=== PATIENT | male | born 1945 | race Caucasian/White ===

== ENCOUNTER 2016-10-09 11:08 | Observation (INO) | payer OTHER ==
[~2016-10-09] VITALS: Ht 177.8 cm; Wt 112.0 kg
[~2016-10-09 11:08] MED LIST: ALLO300T2 PO; ATEN-102 PO; DILT240C7 PO; ETOD400T PO; FLUO60TA PO; HYDR-2768 PO; LISI-366 PO; METF-324 PO; NOVO70IN2 SQ; OMEP20TA PO; TRAZ100 PO
[2016-10-09 11:10] VITALS: BP 147/67; PULSE 56; RESP 16; TEMP 98.3; O2SAT 94
[2016-10-09] MEDS ORDERED: MELO7.5T4 PO (12:08)
[2016-10-09] MEDS ORDERED: TRAZ50TA12 PO (12:08)
[2016-10-09] MEDS ORDERED: FLUO40CA PO (12:08)
[2016-10-09] MEDS ORDERED: POTA10TA2 PO (12:08)
[2016-10-09] MEDS ORDERED: LISI40TA PO (12:08)
[2016-10-09] MEDS ORDERED: ALLO300T2 PO (12:08)
[2016-10-09] MEDS ORDERED: FURO20TA PO (12:08)
[2016-10-09] MEDS ORDERED: METF500T PO (12:08)
[2016-10-09] MEDS ORDERED: METO25TA3 PO (12:08)
[2016-10-09] MEDS ORDERED: NOVO7030P2 SQ (12:08)
[2016-10-09] MEDS ORDERED: NAPR500T PO (12:08)
--- NOTE | 2016-10-09 12:31 | PD ---
HPI Chief Complaint: Respiratory Symptoms Time Seen by Provider: 12:22 Travel History International Travel<30 days: No Contact w/Intl Traveler<30days: No Traveled to known affect area: No History of Present Illness HPI 70-year-old male came to the emergency room with his with history of exertional dyspnea. Patient says that this has been going on for few months but for past 2 weeks it has worsened. Now he gets very short of breath even after taking 10 steps. Patient has history of coronary artery disease and had a CABG 4 years ago. He is a diabetic and listening to the blood sugar count he seems to be poorly controlled. Patient denies of any chest pain. No history of syncopal episode. He takes furosemide half a pill every other day. He also has history of COPD and has a nebulizer at home. Lately he has been using the nebulizer along with nitroglycerin which seems to relieve his shortness of breath to some extent. Vital signs were stable. [facility] Past Medical History Narrative Medical List of his past medical, surgical, social and family history reviewed from the nursing note. Depression: Yes Cardiovascular Problems: Yes (HTN, BYPASS) Cerebrovascular Accident: Yes Diabetes: Yes (METFORMIN) Patient Takes Glucophage: Yes GERD: Yes Gout: Yes Hypertension: Yes Respiratory: Yes (ALBUTEROL) Sleep Apnea: Yes (C-PAP WHEN NEEDED) Past Surgical History Cardiac Surgery: Yes Social History Alcohol Use: No (SOCIALLY) Tobacco Use: No (CHEWS ON A CIGAR) Substance Use: No Allergies-Medications (Allergen,Severity, Reaction): Coded Allergies: No Known Allergies (Unverified , 10/09/16) Comments No known drug allergies. Reported Meds & Prescriptions Reported Meds & Active Scripts Active Reported Potassium Chloride ER (Potassium Chloride) 10 Meq Tab Unknown Dose PO DAILY Trazodone (Trazodone HCl) 50 Mg Tab 50 Mg PO HS Fluoxetine (Fluoxetine HCl) 40 Mg Cap 40 Cap PO DAILY Furosemide 20 Mg Tab 10 Mg PO EVERY OTHER DAY Naproxen 500 Mg Tab 500 Mg PO DAILY Meloxicam 7.5 Mg Tab 7.5 Mg PO DAILY Metformin (Metformin HCl) 500 Mg Tab 500 Mg PO BIDPC With meals Metoprolol Tartrate 25 Mg Tab Unknown Dose PO BID Lisinopril 40 Mg Tab 40 Mg PO DAILY Allopurinol 300 Mg Tab 300 Mg PO DAILY Narrative Medication List of his home medications reviewed from the nursing note. Review of Systems Except as stated in HPI: all other systems reviewed are Neg Physical Exam Narrative GENERAL: Awake, alert, mild distress, obese SKIN: Focused skin assessment warm/dry. HEAD: Atraumatic. Normocephalic. EYES: Pupils equal and round. No scleral icterus. No injection or drainage. ENT: No nasal bleeding or discharge. Mucous membranes pink and moist. NECK: Trachea midline. No JVD. CARDIOVASCULAR: Regular rate and rhythm. Bradycardia. No murmur appreciated. RESPIRATORY: No accessory muscle use. Clear to auscultation. Breath sounds equal bilaterally. GASTROINTESTINAL: Abdomen soft, non-tender, nondistended. Hepatic and splenic margins not palpable. MUSCULOSKELETAL: No obvious deformities. No clubbing. No cyanosis. 1+ pedal edema. NEUROLOGICAL: Awake and alert. No obvious cranial nerve deficits. Motor grossly within normal limits. Normal speech. PSYCHIATRIC: Appropriate mood and affect; insight and judgment normal. Data Data Last Documented VS Vital Signs Date Time Temp Pulse Resp B/P Pulse Ox O2 Delivery O2 Flow Rate FiO2 10/09/16 14:15 94 Nasal Cannula 2 10/09/16 14:14 60 16 142/78 10/09/16 11:10 98.3 Orders Complete Blood Count With Diff (10/09/16 11:40) Basic Metabolic Panel (Bmp) (10/09/16 11:40) Chest, Pa & Lat (10/09/16 11:40) Electrocardiogram (10/09/16 11:40) B-Type Natriuretic Peptide (10/09/16 11:42) Troponin I (10/09/16 13:00) Furosemide Inj (Lasix Inj) (10/09/16 13:45) Admit Order (Ed Use Only) (10/09/16 14:28) Labs Laboratory Tests Test 10/09/16 12:15 White Blood Count 3.9 TH/MM3 Red Blood Count 4.19 MIL/MM3 Hemoglobin 12.4 GM/DL Hematocrit 36.9 % Mean Corpuscular Volume 88.2 FL Mean Corpuscular Hemoglobin 29.6 PG Mean Corpuscular Hemoglobin 33.6 % Concent Red Cell Distribution Width 15.3 % Platelet Count 101 TH/MM3 Mean Platelet Volume 10.0 FL Neutrophils (%) (Auto) 68.8 % Lymphocytes (%) (Auto) 20.9 % Monocytes (%) (Auto) 5.8 % Eosinophils (%) (Auto) 3.9 % Basophils (%) (Auto) 0.6 % Neutrophils # (Auto) 2.7 TH/MM3 Lymphocytes # (Auto) 0.8 TH/MM3 Monocytes # (Auto) 0.2 TH/MM3 Eosinophils # (Auto) 0.1 TH/MM3 Basophils # (Auto) 0.0 TH/MM3 CBC Comment DIFF FINAL Differential Comment Sodium Level 142 MEQ/L Potassium Level 4.0 MEQ/L Chloride Level 105 MEQ/L Carbon Dioxide Level 30.9 MEQ/L Anion Gap 6 MEQ/L Blood Urea Nitrogen 24 MG/DL Creatinine 1.27 MG/DL Estimat Glomerular Filtration 56 ML/MIN Rate Random Glucose 150 MG/DL Calcium Level 8.8 MG/DL Troponin I LESS THAN 0.02 NG/ML B-Type Natriuretic Peptide 345 PG/ML MDM Medical Decision Making Medical Screen Exam Complete: Yes Emergency Medical Condition: Yes Medical Record Reviewed: Yes Interpretation(s) Twelve-lead EKG was reviewed by me. Normal sinus rhythm, bradycardia, poor R- wave progression, old inferior DE. Heart rate of 51 bpm. Differential Diagnosis Congestive heart failure, ACS, non-STEMI Narrative Course 2:15 PM patient was given IV 40 mg of Lasix. Blood test results are back and the BNP is slightly elevated. However the chest x-ray does not show any fluid overload as per the radiologist. Patient has significant risk factor mainly in the form of diabetes which is poorly controlled and hence risk for recurrent ACS and his exertional dyspnea could be an angina variant. I would like to keep him in the chest pain center to be ruled out at this point. Procedures EKG Prior to Arrival: No Diagnosis Primary Impression: Exertional dyspnea Additional Impression: rule out ACS Admitting Information Admitting Physician Requests: Observation Laura Rodriguez MD Oct 09, 2016 12:31
[2016-10-09 13:00] LABS: AUTOMATED NEUTROPHIL # 2.7 TH/MM3 (1.8-7.7); BASOPHIL % 0.6 % (0.0-2.0); EOSINOPHIL # 0.1 TH/MM3 (0-0.4); EOSINOPHIL % 3.9 % (0.0-4.0); HEMATOCRIT 36.9 % (39.0-51.0); HEMO FLAGS DIFF FINAL; LYMPH % 20.9 % (9.0-44.0); LYMPHOCYTE # 0.8 TH/MM3 (1.0-4.8); MEAN CELL VOLUME 88.2 FL (80.0-100.0); MEAN CORPUSCULAR HEMOGLOBIN 29.6 PG (27.0-34.0); MEAN CORPUSCULAR HGB CONC 33.6 % (32.0-36.0); MONO % 5.8 % (0.0-8.0); NEUT % 68.8 % (16.0-70.0); PLATELET COUNT 101 TH/MM3 (150-450); RED BLOOD COUNT 4.19 MIL/MM3 (4.50-5.90); RED CELL DISTRIBUTION WIDTH 15.3 % (11.6-17.2); WHITE BLOOD COUNT 3.9 TH/MM3 (4.0-11.0)
--- NOTE | 2016-10-09 13:19 | RADRPT ---
EXAM DATE/TIME: 10/09/2016 12:14 [facility] COMPARISON: No previous studies available for comparison. INDICATIONS : Shortness of breath, cough. MEDICAL HISTORY : Hypertension. Diabetes mellitus type II. Cholelithiasis. SURGICAL HISTORY : CABG. ENCOUNTER: Initial ACUITY: 1 day PAIN SCORE: 0/10 LOCATION: Bilateral chest FINDINGS: PA and lateral views of the chest demonstrate the lungs to be symmetrically aerated with minimal biba silar atelectatic changes but no confluent infiltrates. Accounting for low lung volumes, heart size i s normal. Intact median sternotomy wires. Osseous structures are intact with bridging anterior and la teral osteophytes. CONCLUSION: 1. Mild bibasilar atelectatic changes. No confluent infiltrate. 2. Heart size is normal. No effusions. Rich Marin MD on October 09, 2016 at 13:16 Board Certified Radiologist. This report was verified electronically.
[2016-10-09 13:42] LABS: BICARBONATE 30.9 MEQ/L (21.0-32.0)
[2016-10-09] MEDS ORDERED: FUROSEMIDE 40 MG/4 ML VIAL IV PUSH ONE (13:45)
[2016-10-09 14:14] VITALS: BP 142/78; PULSE 60; RESP 16; O2SAT 89
[2016-10-09 14:15] VITALS: O2SAT 94
[2016-10-09] MEDS ORDERED: SODIUM CHLORIDE 0.9% FLUSH 10 ML FLUSH IV FLUSH PRN (15:45)
[2016-10-09] MEDS ORDERED: NITROGLYCERIN 0.4 MG SL 25 TABS/BTL SL PRN (15:45)
[2016-10-09] MEDS ORDERED: ACETAMINOPHEN 500 MG CPLT PO PRN (15:45)
[2016-10-09] MEDS ORDERED: ONDANSETRON HCL 4 MG/2 ML VIAL IV PRN (15:45)
[2016-10-09 16:24] VITALS: O2SAT 94
[2016-10-09 16:48] VITALS: BP 167/81; PULSE 52; RESP 20; O2SAT 97
--- NOTE | 2016-10-09 17:08 | EKG ---
Date Performed: 10/09/2016 Time Performed: 12:17:49 PTAGE: 70 years EKG: SINUS BRADYCARDIA POSSIBLE LEFT ATRIAL ENLARGEMENT POSSIBLE INFERIOR MYOCARDIAL INFARCTION BORDERLINE ECG PREVIOUS TRACING : 05/26/2012 12.22 Compared to prior tracing no significant change DOCTOR: Federico August Interpretating Date/Time 10/09/2016 17:07:04
--- NOTE | 2016-10-09 17:30 | HHI.HP ---
HPI Primary Care Physician Reyna [facility] Chief Complaint Exertional dyspnea History of Present Illness 70-year-old male with history of coronary artery disease, CABG 2 (2012), diabetes, COPD, hypertension, and sleep apnea presents to the emergency room for further evaluation of exertional dyspnea. Onset 2 months ago when he first noticed symptoms. Over the last 2 weeks, dyspnea has been constant with any activity. Reports dyspnea occurs with bending over or walking short distances such as 10 feet. Recovers quickly within 1 minute. Does not necessarily hurt to breathe. Diagnosed with COPD "years ago" and was given an inhaler to use when necessary. Followed with a night shift supervisor for his sleep apnea not his COPD. This past week started using albuterol nebulizer 34 times daily with some relief. Denies any chest pain or pressure. Prior to CABG in November 2012 symptoms included weakness, exertional dyspnea, and left anterior chest heaviness. Approximately 1 year after CABG, he developed exertional dyspnea and was ruled out with a chemical stress test. Subsequently he had a cardiac catheterization despite normal stress test due to exertional dyspnea. He was told cardiac catheterization was normal. He is from [place], [place] and [place] with the [place]. Review of Systems General: As stated above. No fatigue, weakness, fever, chills, recent illness, or change in appetite. Traveled from [facility] last seen his primary care provider 09/07/16. He did not notify his PCP at that time of exertional shortness of breath. HEENT: No nasal congestion or drainage, no dysphasia CV: No CP, pressure, palpitations, intermittent leg pain, or dizziness. RESP: Exertional shortness of breath, denies resting dyspnea. Reports occasional wheeze. Recently developed sputum production he relates to after starting nebulizer treatments. Sputum clear. History of COPD and sleep apnea. Denies ever being started on daily inhalers, only albuterol when necessary. Has never had formal pulmonary testing other than a sleep study. GI: No nausea, vomiting, bowel changes, diarrhea, constipation, pain, distention , melena, or blood in the stool. History of colon polyps removed. First colonoscopy 7 polyps removed, second colonoscopy 5 polyps removed. Last colonoscopy approximately 3 years ago and believes he is due for another colonoscopy soon. : No dysuria. Endorses hesitancy with urination that is normal for him. He has notified his PCP regarding this. Reports prostate examined one year ago and was normal. No medications were started at that time. EXT: Chronic lower leg edema, reports neuropathy bilateral feet. Neuropathy occasionally bilateral hands. MS: No discomfort or change in ROM, ambulates with a cane NEURO: No LOC PSYCH: History of depression, stable on current medication regimen. SKIN: No rashes, no concerning lesions Past Family Social History Allergies: Coded Allergies: No Known Allergies (Unverified , 10/09/16) Past Medical History CAD, diabetes insulin-dependent, COPD, hypertension, gout, sleep apnea, CVA 2 ( reports CVAs occurred during open heart surgery, no residual effects) Past Surgical History CABG 2 (11/2012) Reported Medications Active Reported Potassium Chloride ER (Potassium Chloride) 10 Meq Tab Unknown Dose PO DAILY Trazodone (Trazodone HCl) 50 Mg Tab 50 Mg PO HS Fluoxetine (Fluoxetine HCl) 40 Mg Cap 40 Cap PO DAILY Furosemide 20 Mg Tab 10 Mg PO EVERY OTHER DAY Naproxen 500 Mg Tab 500 Mg PO DAILY (Recently started on Naproxen for arthritis pain) Meloxicam 7.5 Mg Tab 7.5 Mg PO DAILY Metformin (Metformin HCl) 500 Mg Tab 500 Mg PO BIDPC With meals Metoprolol Tartrate 12.5 Mg Tab Unknown Dose PO BID Lisinopril 40 Mg Tab 40 Mg PO DAILY Allopurinol 300 Mg Tab 300 Mg PO DAILY Fast acting insulin pen-dosage vary during day Long acting insulin pen 110units daily Atorvastatin (dose unknown) daily Additional antidepressive medication QHS Active Ordered Medications Current Medications Medications (Trade) Dose Ordered Sig/Moses Route Start Time Stop Time Status Last Admin (NS Flush) 2 ml UNSCH PRN IV FLUSH 10/09/16 15:45 (NS Flush) 2 ml BID IV FLUSH 10/09/16 21:00 (Tylenol) 500 mg Q4H PRN PO 10/09/16 15:45 (Zofran Inj) 4 mg Q6H PRN IV 10/09/16 15:45 (Nitrostat Sl) 0.4 mg Q5M PRN SL 10/09/16 15:45 (Aspirin) 325 mg DAILY PO 10/10/16 09:00 Family History Fathermultiple MIs beginning in his early 50s. Mother of [place] at age 45. Social History Known coronary artery disease, diabetes, and hypertension. Appropriately taking statin therapy for his known CAD. Lifelong nonsmoker. Endorses chewing onset are through most of his adult life stopping chewing cigar after CABG. Rare alcohol use. Denies any illegal drug use. Currently sedentary due to progressive exertional dyspnea. Ambulates with a cane. Past cardiac testing No recent cardiac testing. Last cardiac catheterization 2013-reported to be normal. CABGx2 11/2012. Does not follow with a visual training aide. Reports following with a visual training aide a few times after his surgery. Physical Exam Vital Signs Vital Signs Date Time Temp Pulse Resp B/P Pulse Ox O2 Delivery O2 Flow Rate FiO2 10/09/16 16:48 52 20 167/81 97 Nasal Cannula 3 10/09/16 16:24 94 Nasal Cannula 2.00 10/09/16 14:15 94 Nasal Cannula 2 10/09/16 14:14 60 16 142/78 89 Room Air 10/09/16 11:54 22 95 Room Air 10/09/16 11:10 98.3 56 16 147/67 94 Physical Exam GENERAL: Alert WN, WD, NAD, pleasant, obese, male HEAD: NC, AT EYES: Sclera clear, conjunctiva without injection, pupils equal and round ENT: Mucous membranes pink and moist NECK: Supple, no masses, trachea midline CV: RRR, without murmur, rub, gallop, no JVD, S1-S2 no S3-S4. No carotid bruits. RESP: Diminished lungs throughout bilateral, no crackles, wheeze, or rhonchi. Prolonged expiratory phase. Symmetrical chest rise, nonlabored, able to speak in full sentences. ABD: Soft, NT, ND, no masses, positive bowel tones, obese BACK: No scoliosis EXT: Pulses +24, pitting +3 dependent lower extremity edema MS: Normal tone 4 extremities, nontender, no obvious deformities, full range of motion NEURO: CN II through CN XII grossly intact, motor strength 5/5, gait WNL PSYCH: A+O 3, pleasant affect, appropriate speech, appropriate mood and affect , insight and judgment SKIN: Normal turgor, normal texture, no rashes, brisk cap refill, decrease hair distribution lower extremities, left midabdomen lesion appears to be verruca vulgaris. Midchest scar. 4 round scars noted on right hand. Laboratory Laboratory Tests Test 10/09/16 12:15 White Blood Count 3.9 Red Blood Count 4.19 Hemoglobin 12.4 Hematocrit 36.9 Mean Corpuscular Volume 88.2 Mean Corpuscular Hemoglobin 29.6 Mean Corpuscular Hemoglobin 33.6 Concent Red Cell Distribution Width 15.3 Platelet Count 101 Mean Platelet Volume 10.0 Neutrophils (%) (Auto) 68.8 Lymphocytes (%) (Auto) 20.9 Monocytes (%) (Auto) 5.8 Eosinophils (%) (Auto) 3.9 Basophils (%) (Auto) 0.6 Neutrophils # (Auto) 2.7 Lymphocytes # (Auto) 0.8 Monocytes # (Auto) 0.2 Eosinophils # (Auto) 0.1 Basophils # (Auto) 0.0 CBC Comment DIFF FINAL Differential Comment Sodium Level 142 Potassium Level 4.0 Chloride Level 105 Carbon Dioxide Level 30.9 Anion Gap 6 Blood Urea Nitrogen 24 Creatinine 1.27 Estimat Glomerular Filtration 56 Rate Random Glucose 150 Calcium Level 8.8 Troponin I LESS THAN 0.02 B-Type Natriuretic Peptide 345 Result Diagram: 10/09/16 1215 10/09/16 1215 Imaging Last Impressions Chest X-Ray 10/09/16 1140 Signed Impressions: Service Date/Time: Sunday, October 09, 2016 12:14 - CONCLUSION: 1. Mild bibasilar atelectatic changes. No confluent infiltrate. 2. Heart size is normal. No effusions. Rich Marin MD Course EKG Normal sinus bradycardia, inferior myocardial infarction age undetermined Assessment and Plan Assessment and Plan #1 Exertional dyspneaadmitted to chest pain center. Will rule out with 3 sets of EKGs, cardiac enzymes, monitored overnight, and be seen and evaluated by Dr. Aris Turcios. Exertional dyspnea similar prior to CABG in 2012. Further disposition to follow after being evaluated by visual training aide. Discussed the likelihood a chemical stress test may be ordered, patient is agreeable to plan of care. #2 History of CABGcontinue Metoprolol, aspirin, and atorvastatin #3 Diabeteshold metformin, SSI medium dose coverage #4 Depressioncontinue fluoxetine #5 COPDdiscussed in length likelihood he may require a night shift supervisor for further outpatient testing We will reorder any additional home medications as appropriate once med rec updated. Brittney Dueñas Oct 09, 2016 17:30
[2016-10-09 17:55] LABS: CREATINE KINASE 94 U/L (39-308)
[2016-10-09] MEDS ORDERED: DEXTROSE 50% IN WATER 50 ML VIAL(D50) IV PRN (18:15)
[2016-10-09] MEDS ORDERED: GLUCAGON 1 MG/ML VIAL OTHER PRN (18:15)
[2016-10-09 19:44] VITALS: BP_SYST 175; BP_SYST 179; BP_DIAS 86; PULSE 59; RESP 18; TEMP 97.9; O2SAT 98
[2016-10-09 20:30] LABS: CREATINE KINASE 99 U/L (39-308)
[2016-10-09] MEDS: SODIUM CHLORIDE 0.9% FLUSH 10 ML FLUSH IV FLUSH SCH (21:00)
[2016-10-09] MEDS ORDERED: PILL SPLITTER OTHER PRN (21:00)
[2016-10-09] MEDS: METOPROLOL TARTRATE 25 MG TAB PO SCH (23:15)
[2016-10-09] MEDS: INSULIN ASPART SUPPLEMENTAL SCALE SQ SCH (23:34)
[2016-10-10 00:18] VITALS: BP 180/81; PULSE 60; RESP 18; TEMP 84.9; O2SAT 95
[2016-10-10 04:32] VITALS: BP 181/83; PULSE 60; RESP 18; TEMP 97.5; O2SAT 94
[2016-10-10] MEDS ORDERED: INSU1INJ5 SQ (07:09)
[2016-10-10] MEDS ORDERED: NOVOINJ3 SQ ×2 (07:10→07:11)
[2016-10-10 08:00] VITALS: BP 191/88; PULSE 50; RESP 16; TEMP 95.6; O2SAT 92
[2016-10-10] MEDS: INSULIN ASPART SUPPLEMENTAL SCALE SQ SCH (08:05)
[2016-10-10] MEDS ORDERED: LISINOPRIL 20 MG TAB PO SCH (09:00)
[2016-10-10] MEDS ORDERED: FLUoxetine HCL 20 MG CAP PO SCH (09:00)
[2016-10-10] MEDS ORDERED: ALLOPURINOL 300 MG TAB PO SCH (09:00)
[2016-10-10] MEDS ORDERED: ASPIRIN 325 MG TAB PO SCH (09:00)
[2016-10-10] MEDS ORDERED: REGADENOSON INJ 0.4 MG/5 ML SYR ONE (09:35)
--- NOTE | 2016-10-10 10:22 | HHI.DCPOC ---
Discharge Care Plan Diagnosis: (1) Dyspnea on exertion (2) CAD (coronary artery disease) (3) Hx of CABG (4) DM (diabetes mellitus) (5) Hypertension (6) Hyperlipidemia (7) COPD (chronic obstructive pulmonary disease) Goals to Promote Your Health * To prevent worsening of your condition and complications * To maintain your health at the optimal level Directions to Meet Your Goals Take your medications as prescribed Follow your dietary instruction Follow activity as directed Keep your appointments as scheduled Take your immunizations and boosters as scheduled If your symptoms worsen call your PCP, if no PCP go to Urgent Care Center or Emergency Room Smoking is Dangerous to Your Health. Avoid second hand smoke Call the 24-hour hour crisis hotline for domestic abuse at Nilesh Wilson Oct 10, 2016 10:22
--- NOTE | 2016-10-10 11:27 | RADRPT ---
EXAM DATE/TIME: 10/10/2016 09:01 [facility] COMPARISON: No previous studies available for comparison. INDICATIONS : Mid chest pain for one day. Angina. Coronary artery disease. DOSE: 35 mCi Tc99m Myoview at stress. 11 mCi Tc99m Myoview at rest. 0.4 mg Lexiscan STRESS SYMPTOMS: None noted. EJECTION FRACTION: 59% MEDICAL HISTORY : Hypertension. Chronic obstructive pulmonary disease. SURGICAL HISTORY : CABG ENCOUNTER: Initial ACUITY: 1 day PAIN SCALE: 2/10 LOCATION: Bilateral chest TECHNIQUE: The patient underwent pharmacologic stress with infusion of prescribed dose. Continuous ECG tracing was monitored during stress. Gated SPECT imaging was performed after stress and conventional SPECT i maging was performed at rest. The examination was performed on a SPECT/CT scanner, both attenuation and non-corrected datasets were reviewed. FINDINGS: DISTRIBUTION: The maximum perfused segment at stress is in the posterior basal wall. PERFUSION STUDY: The pattern of perfusion at stress is within normal limits. GATED STUDY: There is intact wall motion and thickening without hypokinetic or dyskinetic segments. CONCLUSION: Basically normal perfusion. Satisfactory LV function. RISK CATEGORY: Low (<1% Annual Mortality Rate) Jacobo Pope MD on October 10, 2016 at 11:23 Board Certified Radiologist. This report was verified electronically.
[2016-10-10 12:00] VITALS: BP 207/88; PULSE 57; RESP 18; TEMP 96.3; O2SAT 93
[2016-10-10] MEDS: SODIUM CHLORIDE 0.9% FLUSH 10 ML FLUSH IV FLUSH SCH (13:17)
[2016-10-10] MEDS: METOPROLOL TARTRATE 25 MG TAB PO SCH (13:20)
[2016-10-10 14:01] VITALS: PULSE 48
--- NOTE | 2016-10-10 16:54 | TR ---
Date Performed: 10/10/2016 Time Performed: 09:45:16 DOCTOR: Aris Turcios DRUG LIST: CLINICAL HISTORY: ANGINA REASON FOR TEST: Angina REASON FOR ENDING: OBSERVATION: CONCLUSION: Lexiscan stress test was performed under standard four minute protocol. Radionuclid e was injected one minute prior to ending the test. No electrocardiographic abormalities were present to suggest ischemia. Nuclear imaging and interpretation are pending. COMMENTS:
--- NOTE | 2016-10-10 17:10 | EKG ---
Date Performed: 10/09/2016 Time Performed: 18:56:06 PTAGE: 70 years EKG: SINUS BRADYCARDIA POSSIBLE LEFT ATRIAL ENLARGEMENT POSSIBLE INFERIOR MYOCARDIAL INFARCTION BORDERLINE ECG PREVIOUS TRACING : 10/09/2016 12.17 Since previous tracing, no significant change noted DOCTOR: Aris Turcios Interpretating Date/Time 10/10/2016 17:09:22
--- NOTE | 2016-10-10 17:10 | EKG ---
Date Performed: 10/09/2016 Time Performed: 16:10:08 PTAGE: 70 years EKG: SINUS BRADYCARDIA POSSIBLE LEFT ATRIAL ENLARGEMENT POSSIBLE INFERIOR MYOCARDIAL INFARCTION BORDERLINE ECG INTERPRETATION BASED ON A DEFAULT AGE OF 40 YEARS Since PREVIOUS TRACING , no significant change noted DOCTOR: Aris Turcios Interpretating Date/Time 10/10/2016 17:09:48
== END 2016-10-10 14:40 | disposition home or self-care (01) ==
LOC: NEPC 11:08 → NEDA 14:29 → NEPGCP 19:02
PROVIDERS: ADMIT Internal Medicine Interventional Cardiology; ATTEND Internal Medicine Interventional Cardiology
DX: R06.09 Other forms of dyspnea (principal); I25.10 Atherosclerotic heart disease of native coronary artery without angina pectoris; Z95.1 Presence of aortocoronary bypass graft; E11.9 Type 2 diabetes mellitus without complications; I10 Essential (primary) hypertension; E78.5 Hyperlipidemia, unspecified; J44.9 Chronic obstructive pulmonary disease, unspecified; G47.30 Sleep apnea, unspecified; M10.9 Gout, unspecified; Z86.73 Personal history of transient ischemic attack (TIA), and cerebral infarction without residual deficits; Z79.899 Other long term (current) drug therapy; Z79.84 Long term (current) use of oral hypoglycemic drugs; R00.1 Bradycardia, unspecified
CPT/HCPCS: 71020; 78452; 80048; 82550; 82948; 83880; 84484; 85025; 93005; 93017; 96374; 99285; A9502; G0378; J1815; J1940; J2785